=== PATIENT | female | born 1945 | race Caucasian/White ===

== ENCOUNTER 2017-08-07 08:18 | Inpatient (IN) | payer OTHER ==
[~2017-08-07] VITALS: Ht 157.5 cm; Wt 62.1 kg
[2017-08-07 10:31] LABS: Urine RBC None Seen /hpf (0 - 4)
[2017-08-07 10:32] LABS: Basophils # (auto) 0.1 uL; Basophils % (auto) 0.7 % (0.0-2.0); Eosinophils # (auto) 0 uL; Eosinophils % (auto) 0.5 % (0.0-7.0); Hematocrit 41.4 % (36.0-46.0); Hemoglobin 13.4 g/dL (12.2-16.2); Lymphocytes # (auto) 2.1 uL; Lymphocytes % (auto) 25.2 % (10.0-50.0); Mean Corpuscular Hemoglobin 28.9 pg (28.0-32.0); Mean Corpuscular Hgb Conc. 32.4 g/dL (32.0-36.0); Mean Platelet Volume 7.7 fL (6.9-10.8); Monocytes # (auto) 0.6 uL; Monocytes % (auto) 7.3 % (0.0-12.0); Neutrophils # (auto) 5.5 uL; Neutrophils % (auto) 66.3 % (37.0-80.0); Nucleated Red Blood Cells % 0.1 %; Platelet Count (auto) 312 10^3/uL (140-450); Red Cell Distribution Width 15.1 % (11.8-14.3); White Blood Cell 8.3 10^3/uL (4.4-10.8)
[2017-08-07 10:41] LABS: Albumin 3.6 g/dL (3.4-5.0); Bilirubin, Total 0.6 mg/dL (0.2-1.0); Potassium 3.8 mmol/L (3.5-5.1); Total Protein 7.5 g/dL (6.4-8.2)
[2017-08-07 11:13] LABS: Urine Bilirubin Negative (Negative); Urine Blood Negative /uL (Negative); Urine Glucose Normal (Normal); Urine Ketone Negative (Negative); Urine Nitrite Negative (Negative); Urine Squamous Epithelial Cell FEW /hpf (<5); Urine Urobilinogen Normal (Negative)
[2017-08-07 11:26] LABS: Urine Color Straw (Yellow)
[2017-08-07] MEDS ORDERED: ASPirin 325 MG TAB PO ONE (11:30)
[2017-08-07] MEDS ORDERED: CLOPIDOGREL BISULFATE 75 MG TAB PO ONE (11:30)
[2017-08-07] MEDS: SODIUM CHLORIDE 0.9% 1,000 ML IV SCH ×2 (12:09→16:32)
[2017-08-07] MEDS: ENOXAPARIN SOD 40 MG/0.4 ML SYRINGE SC SCH (12:11)
[2017-08-07] MEDS ORDERED: LACTULOSE 20Gm/30ML SOLN PO PRN (12:15)
[2017-08-07] MEDS ORDERED: ONDANSETRON HCL 4 MG/2 ML VIAL IV PRN (12:15)
[2017-08-07] MEDS ORDERED: TEMAZEPAM 15 MG CAP PO PRN (12:15)
[2017-08-07] MEDS ORDERED: HYDROmorphone HCL 2 MG/ML VL IV PRN ×2 (12:15)
[2017-08-07] MEDS ORDERED: PROMETHAZINE HCL 25 MG/ML 1ML IV PRN (12:15)
[2017-08-07] MEDS ORDERED: HYDROcodone-ACET 5/325MG TAB PO PRN (12:15)
[2017-08-07] MEDS ORDERED: NITROGLYCERIN 0.4 MG SL TAB SL PRN (12:15)
[2017-08-07 15:50] VITALS: BP 132/80
[2017-08-07] MEDS ORDERED: RED1CAP PO (16:49)
[2017-08-07] MEDS ORDERED: CHOL20007 PO (16:49)
[2017-08-07] MEDS ORDERED: VITALIQ10 PO (16:49)
[2017-08-07] MEDS ORDERED: CINN500C7 PO (16:49)
[2017-08-07] MEDS ORDERED: SERT25TA84 PO (16:51)
[2017-08-07] MEDS ORDERED: MELO15TA4 PO (16:51)
[2017-08-07 20:00] VITALS: BP 122/68
[2017-08-07] MEDS: ATORVASTATIN 20 MG TAB PO SCH (21:42)
[2017-08-07] MEDS: ACETAMINOPHEN 500 MG TAB PO PRN (21:43)
[2017-08-07 22:00] VITALS: BP 122/68
[2017-08-08] VITALS (7 sets, daily range): BP systolic 109–140; BP diastolic 63–87
[2017-08-08] MEDS: SODIUM CHLORIDE 0.9% 1,000 ML IV SCH ×3 (00:31→22:27)
[2017-08-08 06:55] LABS: Cholesterol 179 mg/dL (< 200); HDL Cholesterol 43 mg/dL (40-59); LDL Cholesterol 124 mg/dL (< 100); Triglycerides 123 mg/dL (< 150)
[2017-08-08] MEDS: ENOXAPARIN SOD 40 MG/0.4 ML SYRINGE SC SCH (09:55)
[2017-08-08] MEDS ORDERED: ASPirin 81 mg TAB PO SCH (10:00)
[2017-08-08] MEDS: ACETAMINOPHEN 500 MG TAB PO PRN ×2 (12:20→22:26)
[2017-08-08] MEDS: ZOLPIDEM TARTRATE 5 MG TAB PO PRN (22:26)
[2017-08-08] MEDS: ATORVASTATIN 20 MG TAB PO SCH (22:26)
[2017-08-09 05:24] VITALS: BP 147/89
[2017-08-09 09:03] VITALS: BP 129/76
[2017-08-09] MEDS: ENOXAPARIN SOD 40 MG/0.4 ML SYRINGE SC SCH (11:04)
[2017-08-09] MEDS: ACETAMINOPHEN 500 MG TAB PO PRN ×2 (11:22→20:26)
[2017-08-09 12:41] VITALS: BP 132/66
[2017-08-09] MEDS: SODIUM CHLORIDE 0.9% 1,000 ML IV SCH (14:01)
[2017-08-09 17:00] VITALS: BP 119/60
[2017-08-09 20:00] VITALS: BP 112/71
[2017-08-09] MEDS: LORazepam 0.5 MG TAB PO PRN (20:26)
[2017-08-09] MEDS: ZOLPIDEM TARTRATE 5 MG TAB PO PRN (22:00)
[2017-08-09] MEDS: ATORVASTATIN 20 MG TAB PO SCH (22:00)
[2017-08-10] VITALS (7 sets, daily range): BP systolic 107–141; BP diastolic 62–83
[2017-08-10] MEDS: SODIUM CHLORIDE 0.9% 1,000 ML IV SCH ×2 (02:31→15:01)
[2017-08-10] MEDS: ENOXAPARIN SOD 40 MG/0.4 ML SYRINGE SC SCH (10:00)
[2017-08-10] MEDS: ACETAMINOPHEN 500 MG TAB PO PRN (14:05)
[2017-08-10] MEDS: CLOPIDOGREL BISULFATE 75 MG TAB PO SCH (17:13)
[2017-08-10] MEDS: LORazepam 0.5 MG TAB PO PRN (21:24)
[2017-08-10] MEDS ORDERED: ZOLPIDEM TARTRATE 5 MG TAB PO PRN (21:30)
[2017-08-10] MEDS ORDERED: ATORVASTATIN 20 MG TAB PO SCH (22:00)
[2017-08-11] MEDS: SODIUM CHLORIDE 0.9% 1,000 ML IV SCH ×2 (03:31→14:00)
[2017-08-11 05:14] VITALS: BP 134/81
[2017-08-11 08:57] VITALS: BP 125/78
[2017-08-11] MEDS ORDERED: SERTRALINE HCL 50 MG TAB PO SCH (10:00)
[2017-08-11] MEDS: CLOPIDOGREL BISULFATE 75 MG TAB PO SCH (10:39)
[2017-08-11] MEDS: ENOXAPARIN SOD 40 MG/0.4 ML SYRINGE SC SCH (10:40)
[2017-08-11 10:41] LABS: Temperature: 22.4 C (20.0-25.0)
[2017-08-11] MEDS: ACETAMINOPHEN 500 MG TAB PO PRN (10:41)
[2017-08-11 13:00] VITALS: BP 128/70
== END 2017-08-11 16:10 | DRG 65 ==
LOC: EDUNIT# 08:18 → ER 08:18 → EDBD 08:18 → TELE 08:19 → TELE-CENTR 16:12
PROVIDERS: ADMIT Internal Medicine; ATTEND Internal Medicine
DX: I63.9 Cerebral infarction, unspecified (principal); G81.91 Hemiplegia, unspecified affecting right dominant side; G82.20 Paraplegia, unspecified; F41.0 Panic disorder [episodic paroxysmal anxiety]; F51.04 Psychophysiologic insomnia; F17.210 Nicotine dependence, cigarettes, uncomplicated; F32.9 Major depressive disorder, single episode, unspecified; Z79.82 Long term (current) use of aspirin; Z79.899 Other long term (current) drug therapy; Z86.73 Personal history of transient ischemic attack (TIA), and cerebral infarction without residual deficits; Z88.6 Allergy status to analgesic agent; Z88.1 Allergy status to other antibiotic agents; Z88.0 Allergy status to penicillin; Z88.8 Allergy status to other drugs, medicaments and biological substances; K59.00 Constipation, unspecified; G89.29 Other chronic pain; M25.561 Pain in right knee; M25.571 Pain in right ankle and joints of right foot
CPT/HCPCS: 36415; 70450; 70551; 73560; 73610; 80053; 80061; 81001; 82550; 82607; 82746; 84443; 85025; 85652; 93005; 93306; 93886; 96372; 97110; 97116; 97530

== ENCOUNTER 2021-08-28 13:30 | Inpatient (IN) | payer OTHER ==
[~2021-08-28] VITALS: Ht 157.5 cm; Wt 83.1 kg
[~2021-08-28 13:30] MED LIST: CHOL20007 PO; CINN500C7 PO; MELO1TAB56 PO; RED1CAP PO; SERT25TA84 PO; VITALIQ10 PO
[2021-08-28 14:28] LABS: Basophils # (auto) 0.1 10 ^3/uL (0-0.2); Basophils % (auto) 0.8 % (0.0-2.0); Eosinophils # (auto) 0.1 10 ^3/uL (0-0.8); Hematocrit 30.3 % (36.0-46.0); Hemoglobin 9.9 g/dL (12.2-16.2); Lymphocytes # (auto) 2.5 10 ^3/uL (0.4-5.4); Lymphocytes % (auto) 32.2 % (10.0-50.0); Mean Corpuscular Hemoglobin 29.1 pg (28.0-32.0); Mean Corpuscular Hgb Conc. 32.6 g/dL (32.0-36.0); Monocytes # (auto) 0.8 10 ^3/uL (0-1.3); Monocytes % (auto) 10.1 % (0.0-12.0); Neutrophils # (auto) 4.4 10 ^3/uL (1.6-8.6); Neutrophils % (auto) 55.9 % (37.0-80.0); Nucleated Red Blood Cells % 0.1 %; Red Cell Distribution Width 14.1 % (11.8-14.3); White Blood Cell 7.9 10^3/uL (4.4-10.8)
[2021-08-28 14:52] LABS: INR 0.99 (0.9-1.15); Partial Thromboplastin Time 24.8 sec (23.6-33.0)
[2021-08-28 14:54] LABS: Albumin 2.3 g/dL (3.4-5.0); Potassium 3.8 mmol/L (3.5-5.1)
[2021-08-28 14:58] LABS: Bilirubin, Total 1.1 mg/dL (0.2-1.0); Total Protein 5.8 g/dL (6.4-8.2)
[2021-08-28 15:56] LABS: Urine Bacteria NONE SEEN /hpf (None Seen); Urine Blood Negative /uL (Negative); Urine Specific Gravity 1.008 (1.001-1.035); Urine WBC 2 /hpf (0 - 5)
[2021-08-28] MEDS ORDERED: ACETAMINOPHEN 325 MG TAB PO PRN (17:15)
[2021-08-28] MEDS ORDERED: ONDANSETRON HCL 4 MG/2 ML VIAL IV PRN (17:15)
[2021-08-28] MEDS ORDERED: MORPHINE SULFATE 4 MG/ML SYR/VIAL IV ONE (17:30)
[2021-08-28] MEDS ORDERED: ONDANSETRON HCL 4 MG/2 ML VIAL IV ONE (18:00)
[2021-08-28 21:50] VITALS: BP 120/58
[2021-08-28 22:00] VITALS: BP 120/58
[2021-08-28] MEDS: MORPHINE SULFATE INJECTION 2 MG/ML SYRG IV PRN (22:50)
[2021-08-29] MEDS: HYDROcodone-ACET 5/325MG TAB PO PRN ×3 (00:35→18:33)
[2021-08-29] MEDS: MORPHINE SULFATE INJECTION 2 MG/ML SYRG IV PRN ×2 (04:23→20:50)
[2021-08-29] MEDS ORDERED: CYA100I PO (04:44)
[2021-08-29] MEDS ORDERED: ASCO100076 PO (04:44)
[2021-08-29 05:00] VITALS: BP 104/59
[2021-08-29 07:30] LABS: Basophils # (auto) 0.1 10 ^3/uL (0-0.2); Eosinophils # (auto) 0.1 10 ^3/uL (0-0.8); Eosinophils % (auto) 1.5 % (0.0-7.0); Hematocrit 27.3 % (36.0-46.0); Hemoglobin 9.1 g/dL (12.2-16.2); Lymphocytes # (auto) 2.7 10 ^3/uL (0.4-5.4); Lymphocytes % (auto) 41.2 % (10.0-50.0); Mean Corpuscular Hemoglobin 29.7 pg (28.0-32.0); Mean Corpuscular Hgb Conc. 33.3 g/dL (32.0-36.0); Mean Corpuscular Volume 89.1 fL (80.0-100.0); Monocytes # (auto) 0.7 10 ^3/uL (0-1.3); Monocytes % (auto) 10.5 % (0.0-12.0); Neutrophils % (auto) 45.8 % (37.0-80.0); Nucleated Red Blood Cells % 0.1 %; Red Blood Cells 3.07 10^6/uL (4.0-5.20); Red Cell Distribution Width 14.1 % (11.8-14.3); White Blood Cell 6.6 10^3/uL (4.4-10.8)
[2021-08-29 07:42] LABS: Calcium 7.7 mg/dL (8.5-10.1); Potassium 4.1 mmol/L (3.5-5.1)
[2021-08-29 09:00] VITALS: BP 99/56
[2021-08-29] MEDS: SERTRALINE HCL 50 MG TAB PO SCH (10:00)
[2021-08-29] MEDS ORDERED: LIDOCAINE 2%HCL (LOCAL ANESTH.) INJ 20ML MDV ONE (12:36)
[2021-08-29 13:00] VITALS: BP 119/68
[2021-08-29] MEDS ORDERED: MIDAZOLAM HCL 2MG/2ML 2ml VIAL (1mg/ml) ONE (14:53)
[2021-08-29] MEDS ORDERED: fentaNYL CITRATE 100 MCG/2 ML VL ONE (14:53)
[2021-08-29 16:58] VITALS: BP 98/63
[2021-08-29 22:00] VITALS: BP 106/49
[2021-08-30 05:00] VITALS: BP 117/60
[2021-08-30 07:52] LABS: Basophils # (auto) 0.1 10 ^3/uL (0-0.2); Basophils % (auto) 0.8 % (0.0-2.0); Eosinophils # (auto) 0.1 10 ^3/uL (0-0.8); Eosinophils % (auto) 1.2 % (0.0-7.0); Hematocrit 28.6 % (36.0-46.0); Hemoglobin 9.3 g/dL (12.2-16.2); Lymphocytes # (auto) 2.2 10 ^3/uL (0.4-5.4); Lymphocytes % (auto) 29.7 % (10.0-50.0); Mean Corpuscular Hemoglobin 29.1 pg (28.0-32.0); Mean Corpuscular Hgb Conc. 32.5 g/dL (32.0-36.0); Mean Corpuscular Volume 89.4 fL (80.0-100.0); Monocytes # (auto) 0.7 10 ^3/uL (0-1.3); Monocytes % (auto) 9.8 % (0.0-12.0); Neutrophils # (auto) 4.3 10 ^3/uL (1.6-8.6); Neutrophils % (auto) 58.5 % (37.0-80.0); Nucleated Red Blood Cells % 0.1 %; Red Cell Distribution Width 14.2 % (11.8-14.3); White Blood Cell 7.3 10^3/uL (4.4-10.8)
[2021-08-30 08:09] LABS: Anion Gap 11 (5-15); BUN/Creatinine Ratio 26.9; Blood Urea Nitrogen 14 mg/dL (7-18); Calcium 8.1 mg/dL (8.5-10.1); Carbon Dioxide 24 mmol/L (21-32); Chloride 107 mmol/L (98-107); GFR African American 148 mL/min; GFR Non-African American 122 mL/min; Glucose 91 mg/dL (74-106); Potassium 4.9 mmol/L (3.5-5.1); Sodium 142 mmol/L (136-145)
[2021-08-30] MEDS: HYDROcodone-ACET 5/325MG TAB PO PRN (08:48)
[2021-08-30] MEDS: SERTRALINE HCL 50 MG TAB PO SCH (08:48)
[2021-08-30 09:00] VITALS: BP 118/54
[2021-08-30] MEDS: MORPHINE SULFATE INJECTION 2 MG/ML SYRG IV PRN ×2 (11:19→22:20)
[2021-08-30 13:00] VITALS: BP 112/58
[2021-08-30 17:00] VITALS: BP 112/65
[2021-08-30] MEDS: POLYETHYLENE GLYCOL 17 GM PWDR PO SCH (20:17)
[2021-08-30] MEDS: DOCUSATE SOD 100 MG CAP PO SCH (20:17)
[2021-08-30 22:00] VITALS: BP 134/71
[2021-08-31 05:04] VITALS: BP 117/68
[2021-08-31] MEDS: DOCUSATE SOD 100 MG CAP PO SCH ×3 (06:00→21:57)
[2021-08-31] MEDS ORDERED: BUPIVACAINE 0.25% INJ 50ML VIAL ONE (07:01)
[2021-08-31 07:04] LABS: Basophils # (auto) 0.1 10 ^3/uL (0-0.2); Basophils % (auto) 0.8 % (0.0-2.0); Eosinophils # (auto) 0.1 10 ^3/uL (0-0.8); Eosinophils % (auto) 1.1 % (0.0-7.0); Hematocrit 27.9 % (36.0-46.0); Hemoglobin 9.4 g/dL (12.2-16.2); Lymphocytes # (auto) 2.1 10 ^3/uL (0.4-5.4); Lymphocytes % (auto) 27.5 % (10.0-50.0); Mean Corpuscular Hemoglobin 29.8 pg (28.0-32.0); Mean Corpuscular Hgb Conc. 33.6 g/dL (32.0-36.0); Mean Corpuscular Volume 88.7 fL (80.0-100.0); Monocytes # (auto) 0.7 10 ^3/uL (0-1.3); Monocytes % (auto) 9.5 % (0.0-12.0); Neutrophils # (auto) 4.7 10 ^3/uL (1.6-8.6); Neutrophils % (auto) 61.1 % (37.0-80.0); Nucleated Red Blood Cells % 0.1 %; Red Blood Cells 3.15 10^6/uL (4.0-5.20); White Blood Cell 7.7 10^3/uL (4.4-10.8)
[2021-08-31 07:10] LABS: BUN/Creatinine Ratio 25.5; Calcium 7.9 mg/dL (8.5-10.1); Potassium 4.4 mmol/L (3.5-5.1)
[2021-08-31] MEDS ORDERED: VANCOMYCIN HCL 1000 MG VL ONE (07:16)
[2021-08-31] MEDS ORDERED: PROPOFOL 10 MG/ML 20 ML IV ONE (08:06)
[2021-08-31] MEDS ORDERED: LIDOCAINE 2% (LOCAL ANESTH.) PF 5ml SDV ONE (08:06)
[2021-08-31] MEDS ORDERED: ONDANSETRON HCL 4 MG/2 ML VIAL ONE (08:07)
[2021-08-31] MEDS ORDERED: DexAMETHasone SOD PHOS 10MG/1ML VIAL INJ ONE (08:07)
[2021-08-31] MEDS ORDERED: ePHEDrine SULFATE 50 MG/ML AMP ONE (08:07)
[2021-08-31] MEDS ORDERED: fentaNYL CITRATE 100 MCG/2 ML VL ONE ×2 (08:09→09:19)
[2021-08-31] MEDS ORDERED: HYDROmorphone HCL 2 MG/ML VL IV PRN ×2 (09:45)
[2021-08-31] MEDS ORDERED: hydrALAZINE HCL 20 MG/ML VL IV PRN (09:45)
[2021-08-31] MEDS ORDERED: LABETALOL HCL 5 MG/ML 4ML SYRINGE IV PRN (09:45)
[2021-08-31] MEDS: SERTRALINE HCL 50 MG TAB PO SCH (11:44)
[2021-08-31] MEDS: HYDROcodone-ACET 10/325MG TAB PO PRN (11:45)
[2021-08-31] MEDS: POLYETHYLENE GLYCOL 17 GM PWDR PO SCH (11:46)
[2021-08-31 13:00] VITALS: BP 121/67
[2021-08-31] MEDS: HYDROmorphone HCL 2 MG/ML VL IV PRN ×2 (13:07→22:03)
[2021-08-31] MEDS: VANCOMYCIN 1GM/250ML 250 ML IV SCH (16:00)
[2021-08-31 17:00] VITALS: BP 116/72
[2021-08-31 21:52] VITALS: BP 129/69
[2021-09-01] MEDS: VANCOMYCIN 1GM/250ML 250 ML IV SCH (03:57)
[2021-09-01] MEDS: HYDROcodone-ACET 10/325MG TAB PO PRN (04:22)
[2021-09-01] MEDS: DOCUSATE SOD 100 MG CAP PO SCH ×3 (05:12→21:31)
[2021-09-01 05:22] VITALS: BP 113/53
[2021-09-01 07:00] LABS: Basophils # (auto) 0 10 ^3/uL (0-0.2); Eosinophils # (auto) 0 10 ^3/uL (0-0.8); Eosinophils % (auto) 0.1 % (0.0-7.0); Monocytes % (auto) 11.9 % (0.0-12.0); White Blood Cell 8.8 10^3/uL (4.4-10.8)
[2021-09-01 07:04] LABS: Basophils % (auto) 0.3 % (0.0-2.0); Hematocrit 24.2 % (36.0-46.0); Lymphocytes # (auto) 1.6 10 ^3/uL (0.4-5.4); Lymphocytes % (auto) 18.5 % (10.0-50.0); Mean Corpuscular Hemoglobin 29.1 pg (28.0-32.0); Mean Corpuscular Volume 88.1 fL (80.0-100.0); Monocytes # (auto) 1.1 10 ^3/uL (0-1.3); Neutrophils # (auto) 6.1 10 ^3/uL (1.6-8.6); Neutrophils % (auto) 69.2 % (37.0-80.0); Red Blood Cells 2.75 10^6/uL (4.0-5.20); Red Cell Distribution Width 13.6 % (11.8-14.3)
[2021-09-01 07:08] LABS: BUN/Creatinine Ratio 31.3; Calcium 7.6 mg/dL (8.5-10.1); Potassium 4.8 mmol/L (3.5-5.1)
[2021-09-01] MEDS: ENOXAPARIN SOD 80 MG/0.8ML SYRINGE SC SCH (08:32)
[2021-09-01] MEDS: POLYETHYLENE GLYCOL 17 GM PWDR PO SCH (08:34)
[2021-09-01] MEDS: SERTRALINE HCL 50 MG TAB PO SCH (08:34)
[2021-09-01] MEDS: HYDROmorphone HCL 2 MG/ML VL IV PRN ×2 (08:35→21:43)
[2021-09-01 09:00] VITALS: BP 108/51
[2021-09-01 12:00] VITALS: BP 117/67
[2021-09-01 16:00] VITALS: BP 141/71
[2021-09-01] MEDS ORDERED: LACTULOSE 20Gm/30ML SOLN PO ONE (16:45)
[2021-09-01 17:00] VITALS: BP 109/32
[2021-09-01] MEDS: LACTULOSE 20Gm/30ML SOLN PO SCH (21:44)
[2021-09-01 22:00] VITALS: BP 156/80
[2021-09-02 05:00] VITALS: BP 174/78
[2021-09-02 05:35] LABS: Basophils % (auto) 0.5 % (0.0-2.0); Eosinophils # (auto) 0 10 ^3/uL (0-0.8)
[2021-09-02 05:42] LABS: Basophils # (auto) 0.1 10 ^3/uL (0-0.2); Eosinophils % (auto) 0.4 % (0.0-7.0); Hematocrit 24.7 % (36.0-46.0); Hemoglobin 8.4 g/dL (12.2-16.2); Lymphocytes # (auto) 2.1 10 ^3/uL (0.4-5.4); Mean Corpuscular Hemoglobin 29.8 pg (28.0-32.0); Mean Corpuscular Hgb Conc. 33.9 g/dL (32.0-36.0); Monocytes % (auto) 10.7 % (0.0-12.0); Neutrophils # (auto) 6.4 10 ^3/uL (1.6-8.6); Neutrophils % (auto) 66.4 % (37.0-80.0); Red Blood Cells 2.81 10^6/uL (4.0-5.20); Red Cell Distribution Width 14.1 % (11.8-14.3); White Blood Cell 9.7 10^3/uL (4.4-10.8)
[2021-09-02 05:57] LABS: Calcium 7.8 mg/dL (8.5-10.1); Potassium 4.7 mmol/L (3.5-5.1)
[2021-09-02 06:00] LABS: BUN/Creatinine Ratio 25.5
[2021-09-02] MEDS: LACTULOSE 20Gm/30ML SOLN PO SCH (06:00)
[2021-09-02] MEDS: DOCUSATE SOD 100 MG CAP PO SCH ×2 (06:10→14:00)
[2021-09-02] MEDS: HYDROmorphone HCL 2 MG/ML VL IV PRN ×3 (06:14→15:18)
[2021-09-02 09:00] VITALS: BP 119/62
[2021-09-02] MEDS: POLYETHYLENE GLYCOL 17 GM PWDR PO SCH (10:00)
[2021-09-02] MEDS: ENOXAPARIN SOD 80 MG/0.8ML SYRINGE SC SCH (10:31)
[2021-09-02] MEDS: SERTRALINE HCL 50 MG TAB PO SCH (10:32)
[2021-09-02 13:00] VITALS: BP 105/58
[2021-09-02 16:46] VITALS: BP 156/76
== END 2021-09-02 20:38 | DRG 480 ==
LOC: ER 13:30 → EDBD 13:30 → OVERFLOW 17:05 → WEST WING 21:24
PROVIDERS: ADMIT Internal Medicine; ATTEND Internal Medicine
PROC: BW1C1ZZ Fluoroscopy of Lower Extremity using Low Osmolar Contrast (ICD-10-PCS; 2021-08-31)
PROC: 06H03DZ Insertion of Intraluminal Device into Inferior Vena Cava, Percutaneous Approach (ICD-10-PCS; 2021-08-31)
PROC: B519YZZ Fluoroscopy of Inferior Vena Cava using Other Contrast (ICD-10-PCS; 2021-08-31)
PROC: 0QS604Z Reposition Right Upper Femur with Internal Fixation Device, Open Approach (ICD-10-PCS; principal; 2021-08-31 08:08)
DX: S72.8X1A Other fracture of right femur, initial encounter for closed fracture (principal); E43 Unspecified severe protein-calorie malnutrition; I82.441 Acute embolism and thrombosis of right tibial vein; D64.9 Anemia, unspecified; Z95.828 Presence of other vascular implants and grafts; Z96.651 Presence of right artificial knee joint; Z20.822 Contact with and (suspected) exposure to COVID-19; W18.39XA Other fall on same level, initial encounter; F17.210 Nicotine dependence, cigarettes, uncomplicated; Z88.0 Allergy status to penicillin; Z88.8 Allergy status to other drugs, medicaments and biological substances; Z82.49 Family history of ischemic heart disease and other diseases of the circulatory system; Z86.73 Personal history of transient ischemic attack (TIA), and cerebral infarction without residual deficits; Z90.710 Acquired absence of both cervix and uterus; Y93.89 Activity, other specified; Y92.098 Other place in other non-institutional residence as the place of occurrence of the external cause; Y99.8 Other external cause status
CPT/HCPCS: 36415; 71045; 72170; 73560; 73700; 76000; 80048; 80053; 81001; 85025; 85610; 85730; 86850; 86900; 86901; 87426; 93005; 93306; 93970; 96375; 96376; 97110; 97116; 97163; 97530; 99152; G0378; J1100; J2001; J2250; J2405; J2704; J3490

== ENCOUNTER 2021-09-27 22:24 | Inpatient (IN) | payer OTHER ==
[~2021-09-27] VITALS: Ht 157.5 cm; Wt 64.5 kg
[~2021-09-27 22:24] MED LIST changes: +ASCO100076 PO; -CINN500C7 PO; +CYA100I PO; -MELO1TAB56 PO; -RED1CAP PO; -SERT25TA84 PO; -VITALIQ10 PO
[2021-09-27 23:58] LABS: Basophils # (auto) 0.1 10 ^3/uL (0-0.2); Hematocrit 33.8 % (36.0-46.0); Hemoglobin 10.1 g/dL (12.2-16.2); Mean Corpuscular Hemoglobin 25.9 pg (28.0-32.0)
[2021-09-28] LABS: Basophils % (auto) 0.3 % (0.0-2.0); Eosinophils # (auto) 0 10 ^3/uL (0-0.8); Lymphocytes % (auto) 11.1 % (10.0-50.0); Mean Corpuscular Hgb Conc. 29.9 g/dL (32.0-36.0); Mean Corpuscular Volume 86.8 fL (80.0-100.0); Monocytes # (auto) 1.4 10 ^3/uL (0-1.3); Monocytes % (auto) 7.6 % (0.0-12.0); Neutrophils # (auto) 14.7 10 ^3/uL (1.6-8.6); Red Blood Cells 3.89 10^6/uL (4.0-5.20); Red Cell Distribution Width 16.8 % (11.8-14.3); White Blood Cell 18.2 10^3/uL (4.4-10.8)
[2021-09-28 00:44] LABS: Albumin 1.7 g/dL (3.4-5.0); BUN/Creatinine Ratio 34.8; Calcium 8.6 mg/dL (8.5-10.1); Potassium 3.6 mmol/L (3.5-5.1)
[2021-09-28 00:49] LABS: Bilirubin, Total 0.4 mg/dL (0.2-1.0); Total Protein 7.3 g/dL (6.4-8.2)
[2021-09-28 00:55] LABS: Urine Bacteria NONE SEEN /hpf (None Seen); Urine Blood 1+ /uL (Negative); Urine Specific Gravity 1.014 (1.001-1.035); Urine WBC 3 /hpf (0 - 5)
[2021-09-28] MEDS ORDERED: DexAMETHasone SOD PHOS 10MG/1ML VIAL INJ IV ONE (05:00)
[2021-09-28] MEDS ORDERED: SODIUM CHLORIDE 0.9% 500 ML IV ONE (05:15)
[2021-09-28] MEDS ORDERED: SOD CHL 0.45% 1,000 ML IV SCH (05:45)
[2021-09-28] MEDS ORDERED: ONDANSETRON HCL 4 MG/2 ML VIAL IV PRN ×2 (05:45→07:00)
[2021-09-28] MEDS ORDERED: NITROGLYCERIN 0.4 MG SL TAB SL PRN (07:00)
[2021-09-28] MEDS ORDERED: MORPHINE SULFATE INJECTION 2 MG/ML SYRG IV PRN (07:00)
[2021-09-28 07:16] LABS: Magnesium 2.6 mg/dL (1.6-2.6)
[2021-09-28 07:25] LABS: CRP High Sensitivity > 19.0 mg/dL (< 0.3)
[2021-09-28 07:42] LABS: INR > 8.0 (0.9-1.15); Partial Thromboplastin Time 104.2 sec (23.6-33.0)
[2021-09-28] MEDS: IVERMECTIN 3 MG TAB PO SCH ×2 (08:30→11:28)
[2021-09-28] MEDS: BUDESONIDE (INHALATION) 180 MCG IH IN SCH ×2 (10:00→20:39)
[2021-09-28] MEDS ORDERED: ENOXAPARIN SOD 30 MG/0.3 ML SYRINGE SC SCH (10:00)
[2021-09-28] MEDS ORDERED: D5W/SOD CHL 0.45% 1,000 ML IV SCH (10:30)
[2021-09-28] MEDS ORDERED: PHYTONADIONE (VIT K)10 MG/ML 1ML VIAL SUBCUT ONE (10:30)
[2021-09-28 11:12] LABS: BUN/Creatinine Ratio 43.3; Calcium 8.1 mg/dL (8.5-10.1); Potassium 3.6 mmol/L (3.5-5.1)
[2021-09-28] MEDS: cefTRIAXone 1GM/50ML D5W 50 ML IV SCH (11:26)
[2021-09-28] MEDS: DexAMETHasone SOD PHOS 10MG/1ML VIAL INJ IV SCH (11:27)
[2021-09-28] MEDS: PANTOPRAZOLE 40 MG TAB PO SCH (11:27)
[2021-09-28] MEDS: SERTRALINE HCL 50 MG TAB PO SCH (11:27)
[2021-09-28] MEDS: ZINC SULFATE 220mg CAP or TAB PO SCH (11:27)
[2021-09-28] MEDS: CHOLECALCIFEROL (VITD3) 2,000 UNIT CAP/TAB PO SCH (11:28)
[2021-09-28] MEDS: ASCORBIC ACID 1,000 MG TAB PO SCH (11:28)
[2021-09-28] MEDS: AZITHROMYCIN 500MG/ 250ML 250 ML IV SCH (11:36)
[2021-09-28] MEDS: D5W 5% 1,000 ML IV SCH ×2 (14:30→19:57)
[2021-09-28 17:11] VITALS: BP 128/68
[2021-09-28 22:00] VITALS: BP 125/68
[2021-09-29] VITALS (7 sets, daily range): BP systolic 126–146; BP diastolic 70–91
[2021-09-29] MEDS: cefTRIAXone 1GM/50ML D5W 50 ML IV SCH (08:45)
[2021-09-29] MEDS: CHOLECALCIFEROL (VITD3) 2,000 UNIT CAP/TAB PO SCH (08:46)
[2021-09-29] MEDS: DexAMETHasone SOD PHOS 10MG/1ML VIAL INJ IV SCH (08:46)
[2021-09-29] MEDS: PANTOPRAZOLE 40 MG TAB PO SCH (08:46)
[2021-09-29] MEDS: SERTRALINE HCL 50 MG TAB PO SCH (08:47)
[2021-09-29] MEDS: IVERMECTIN 3 MG TAB PO SCH (08:47)
[2021-09-29] MEDS: ZINC SULFATE 220mg CAP or TAB PO SCH (08:47)
[2021-09-29] MEDS: ASCORBIC ACID 1,000 MG TAB PO SCH (08:47)
[2021-09-29 09:00] LABS: Basophils # (auto) 0 10 ^3/uL (0-0.2); Basophils % (auto) 0.2 % (0.0-2.0); Eosinophils # (auto) 0 10 ^3/uL (0-0.8); Lymphocytes # (auto) 1.6 10 ^3/uL (0.4-5.4); Neutrophils % (auto) 84.3 % (37.0-80.0)
[2021-09-29 09:02] LABS: Hematocrit 26.3 % (36.0-46.0); Hemoglobin 7.9 g/dL (12.2-16.2); Lymphocytes % (auto) 9.7 % (10.0-50.0); Mean Corpuscular Hemoglobin 26.4 pg (28.0-32.0); Mean Corpuscular Hgb Conc. 30.1 g/dL (32.0-36.0); Mean Corpuscular Volume 87.6 fL (80.0-100.0); Monocytes % (auto) 5.8 % (0.0-12.0); Neutrophils # (auto) 13.9 10 ^3/uL (1.6-8.6); Red Cell Distribution Width 16.9 % (11.8-14.3); White Blood Cell 16.5 10^3/uL (4.4-10.8)
[2021-09-29 09:23] LABS: Albumin 1.6 g/dL (3.4-5.0); Potassium 3.1 mmol/L (3.5-5.1)
[2021-09-29 09:27] LABS: BUN/Creatinine Ratio 47.6; Bilirubin, Total 0.3 mg/dL (0.2-1.0); Total Protein 5.8 g/dL (6.4-8.2)
[2021-09-29] MEDS: BUDESONIDE (INHALATION) 180 MCG IH IN SCH ×2 (09:32→22:27)
[2021-09-29 10:04] LABS: INR > 8.0 (0.9-1.15)
[2021-09-29] MEDS ORDERED: PHYTONADIONE(VitK) ORAL Susp 10mg/10ml(1mg/ml) PO ONE (10:30)
[2021-09-29] MEDS ORDERED: REMDESIVIR PER PHARMACY 0 ML IV SCH (10:30)
[2021-09-29] MEDS ORDERED: POTASSIUM EFFERVESENT TAB 25 MEQ PO ONE (10:45)
[2021-09-29] MEDS: AZITHROMYCIN 500MG/ 250ML 250 ML IV SCH (11:46)
[2021-09-29] MEDS: D5W 5% 1,000 ML IV SCH ×3 (11:47→23:58)
[2021-09-29] MEDS ORDERED: REMDESIVIR 200 MG in NS 210ml LOADING DOSE ADULT IV ONE (15:00)
[2021-09-29 16:44] LABS: INR 7.81 (0.9-1.15)
[2021-09-29] MEDS: PANTOPRAZOLE 40mg/50ML NS AE 50 ML IV SCH ×2 (18:45→22:57)
[2021-09-29 20:18] LABS: Eosinophils # (auto) 0 10 ^3/uL (0-0.8); Hemoglobin 7.9 g/dL (12.2-16.2); Monocytes # (auto) 0.4 10 ^3/uL (0-1.3)
[2021-09-29 20:20] LABS: Basophils # (auto) 0.1 10 ^3/uL (0-0.2); Basophils % (auto) 0.5 % (0.0-2.0); Hematocrit 26.1 % (36.0-46.0); Lymphocytes # (auto) 1.1 10 ^3/uL (0.4-5.4); Lymphocytes % (auto) 6.8 % (10.0-50.0); Mean Corpuscular Hemoglobin 26.5 pg (28.0-32.0); Mean Corpuscular Hgb Conc. 30.4 g/dL (32.0-36.0); Mean Corpuscular Volume 87.1 fL (80.0-100.0); Monocytes % (auto) 2.5 % (0.0-12.0); Neutrophils # (auto) 14.1 10 ^3/uL (1.6-8.6); Neutrophils % (auto) 90.2 % (37.0-80.0); Red Blood Cells 2.99 10^6/uL (4.0-5.20); Red Cell Distribution Width 16.8 % (11.8-14.3); White Blood Cell 15.6 10^3/uL (4.4-10.8)
[2021-09-29] MEDS ORDERED: PANTOPRAZOLE 40 MG/10 ML VIAL INJ IV SCH (22:00)
[2021-09-30] VITALS (21 sets, daily range): BP systolic 114–166; BP diastolic 60–90
[2021-09-30] MEDS: PANTOPRAZOLE 40mg/50ML NS AE 50 ML IV SCH ×4 (03:38→22:13)
[2021-09-30 06:33] LABS: Basophils # (auto) 0 10 ^3/uL (0-0.2); Eosinophils # (auto) 0 10 ^3/uL (0-0.8); Monocytes # (auto) 0.5 10 ^3/uL (0-1.3); Nucleated Red Blood Cells % 0.1 %; White Blood Cell 16.6 10^3/uL (4.4-10.8)
[2021-09-30 06:35] LABS: Basophils % (auto) 0.1 % (0.0-2.0); Lymphocytes # (auto) 1.2 10 ^3/uL (0.4-5.4); Mean Corpuscular Hemoglobin 26.1 pg (28.0-32.0); Mean Corpuscular Hgb Conc. 30.3 g/dL (32.0-36.0); Mean Corpuscular Volume 86.2 fL (80.0-100.0); Monocytes % (auto) 3.1 % (0.0-12.0); Neutrophils # (auto) 14.9 10 ^3/uL (1.6-8.6); Neutrophils % (auto) 89.8 % (37.0-80.0); Red Blood Cells 2.44 10^6/uL (4.0-5.20); Red Cell Distribution Width 16.5 % (11.8-14.3)
[2021-09-30 06:43] LABS: INR 1.81 (0.9-1.15)
[2021-09-30 06:48] LABS: Hemoglobin 6.4 g/dL (12.2-16.2)
[2021-09-30 07:07] LABS: Albumin 1.8 g/dL (3.4-5.0); BUN/Creatinine Ratio 36.3; Calcium 8.4 mg/dL (8.5-10.1); Potassium 3.7 mmol/L (3.5-5.1)
[2021-09-30 07:10] LABS: Bilirubin, Total 0.4 mg/dL (0.2-1.0); Total Protein 5.5 g/dL (6.4-8.2)
[2021-09-30] MEDS: cefTRIAXone 1GM/50ML D5W 50 ML IV SCH (09:26)
[2021-09-30] MEDS: BUDESONIDE (INHALATION) 180 MCG IH IN SCH ×2 (09:50→22:00)
[2021-09-30] MEDS: CHOLECALCIFEROL (VITD3) 2,000 UNIT CAP/TAB PO SCH (10:00)
[2021-09-30] MEDS: IVERMECTIN 3 MG TAB PO SCH (10:00)
[2021-09-30] MEDS: ASCORBIC ACID 1,000 MG TAB PO SCH (10:00)
[2021-09-30] MEDS: ZINC SULFATE 220mg CAP or TAB PO SCH (10:00)
[2021-09-30] MEDS: SERTRALINE HCL 50 MG TAB PO SCH (10:00)
[2021-09-30] MEDS: DexAMETHasone SOD PHOS 10MG/1ML VIAL INJ IV SCH (11:05)
[2021-09-30] MEDS: AZITHROMYCIN 500MG/ 250ML 250 ML IV SCH (11:09)
[2021-09-30] MEDS: D5W 5% 1,000 ML IV SCH ×3 (11:19→19:50)
[2021-09-30] MEDS ORDERED: PHYTONADIONE (VIT K)10 MG/ML 1ML VIAL IV ONE (13:30)
[2021-09-30] MEDS ORDERED: phytonadione 10 MG in SODIUM CHL 0.9% 50 ML IV ONE (13:30)
[2021-09-30] MEDS: REMDESIVIR 100mg 100 MG in SODIUM CHL 0.9% 230 ML IV SCH (15:41)
[2021-09-30 23:31] LABS: Hematocrit 31.8 % (36.0-46.0); Hemoglobin 10.3 g/dL (12.2-16.2)
[2021-10-01] MEDS: D5W 5% 1,000 ML IV SCH ×4 (02:30→22:30)
[2021-10-01 05:00] VITALS: BP 153/80
[2021-10-01] MEDS: PANTOPRAZOLE 40mg/50ML NS AE 50 ML IV SCH ×3 (05:08→09:58)
[2021-10-01] MEDS: BUDESONIDE (INHALATION) 180 MCG IH IN SCH ×2 (05:58→22:40)
[2021-10-01 07:01] LABS: Basophils # (auto) 0 10 ^3/uL (0-0.2); Basophils % (auto) 0.1 % (0.0-2.0); Eosinophils # (auto) 0 10 ^3/uL (0-0.8); Hematocrit 35.6 % (36.0-46.0); Lymphocytes # (auto) 1.5 10 ^3/uL (0.4-5.4); Mean Corpuscular Hemoglobin 27.3 pg (28.0-32.0); Mean Corpuscular Volume 88.1 fL (80.0-100.0); Monocytes # (auto) 0.7 10 ^3/uL (0-1.3); Monocytes % (auto) 4.7 % (0.0-12.0); Neutrophils # (auto) 12.9 10 ^3/uL (1.6-8.6); Neutrophils % (auto) 85.2 % (37.0-80.0); Nucleated Red Blood Cells % 0.3 %; Red Blood Cells 4.05 10^6/uL (4.0-5.20); Red Cell Distribution Width 15.8 % (11.8-14.3); White Blood Cell 15.1 10^3/uL (4.4-10.8)
[2021-10-01 07:15] LABS: INR 1.3 (0.9-1.15); Partial Thromboplastin Time 21.7 sec (23.6-33.0)
[2021-10-01 07:23] LABS: Potassium 3.7 mmol/L (3.5-5.1)
[2021-10-01 07:31] LABS: Albumin 1.8 g/dL (3.4-5.0); BUN/Creatinine Ratio 54.9; Bilirubin, Total 0.4 mg/dL (0.2-1.0); Calcium 7.9 mg/dL (8.5-10.1); Total Protein 5.6 g/dL (6.4-8.2)
[2021-10-01 09:00] VITALS: BP 155/70
[2021-10-01] MEDS: ZINC SULFATE 220mg CAP or TAB PO SCH (09:34)
[2021-10-01] MEDS: ASCORBIC ACID 1,000 MG TAB PO SCH (09:35)
[2021-10-01] MEDS: SERTRALINE HCL 50 MG TAB PO SCH (09:35)
[2021-10-01] MEDS: CHOLECALCIFEROL (VITD3) 2,000 UNIT CAP/TAB PO SCH (09:35)
[2021-10-01] MEDS: IVERMECTIN 3 MG TAB PO SCH (09:35)
[2021-10-01] MEDS: cefTRIAXone 1GM/50ML D5W 50 ML IV SCH (09:57)
[2021-10-01] MEDS: DexAMETHasone SOD PHOS 10MG/1ML VIAL INJ IV SCH (09:57)
[2021-10-01] MEDS: AZITHROMYCIN 500MG/ 250ML 250 ML IV SCH (10:00)
[2021-10-01 10:48] LABS: Protein, Urine 68.5 mg/dL (0.0-11.9)
[2021-10-01] MEDS ORDERED: LIDOCAINE VISCOUS 2% 15ML UD ONE (11:51)
[2021-10-01] MEDS ORDERED: PROPOFOL 10 MG/ML 20 ML IV ONE (12:18)
[2021-10-01] MEDS ORDERED: fentaNYL CITRATE 100 MCG/2 ML VL ONE (12:18)
[2021-10-01] MEDS ORDERED: DexAMETHasone SOD PHOS 10MG/1ML VIAL INJ ONE (12:18)
[2021-10-01] MEDS ORDERED: MIDAZOLAM HCL 2MG/2ML 2ml VIAL (1mg/ml) ONE (12:18)
[2021-10-01] MEDS ORDERED: BENZOCAINE (DENTAL) 20 % SPRAY 60ML MT ONE (12:21)
[2021-10-01] MEDS ORDERED: HYDROmorphone HCL 2 MG/ML VL IV PRN (12:45)
[2021-10-01] MEDS ORDERED: MIDAZOLAM HCL 2MG/2ML 2ml VIAL (1mg/ml) IV PRN (12:45)
[2021-10-01] MEDS ORDERED: hydrALAZINE HCL 20 MG/ML VL IV PRN (12:45)
[2021-10-01] MEDS ORDERED: LABETALOL HCL 5 MG/ML 4ML SYRINGE IV PRN (12:45)
[2021-10-01] MEDS ORDERED: ONDANSETRON HCL 4 MG/2 ML VIAL IV PRN (12:45)
[2021-10-01] MEDS ORDERED: MORPHINE SULFATE 4 MG/ML SYR/VIAL IV PRN (12:45)
[2021-10-01] MEDS ORDERED: ePHEDrine SULFATE 50 MG/ML AMP IV PRN (12:45)
[2021-10-01 13:00] VITALS: BP 142/80
[2021-10-01] MEDS: REMDESIVIR 100mg 100 MG in SODIUM CHL 0.9% 230 ML IV SCH (15:00)
[2021-10-01 17:00] VITALS: BP 137/79
[2021-10-01 22:00] VITALS: BP 158/100
[2021-10-01] MEDS: PANTOPRAZOLE 40 MG/10 ML VIAL INJ IV SCH (22:15)
[2021-10-02 05:00] VITALS: BP 133/75
[2021-10-02] MEDS: D5W 5% 1,000 ML IV SCH ×2 (05:10→15:45)
[2021-10-02 06:37] LABS: Basophils # (auto) 0 10 ^3/uL (0-0.2); Basophils % (auto) 0.3 % (0.0-2.0); Eosinophils # (auto) 0 10 ^3/uL (0-0.8); Hematocrit 36.4 % (36.0-46.0); Hemoglobin 11.6 g/dL (12.2-16.2); Lymphocytes # (auto) 1.3 10 ^3/uL (0.4-5.4); Lymphocytes % (auto) 10.6 % (10.0-50.0); Mean Corpuscular Hemoglobin 27.6 pg (28.0-32.0); Mean Corpuscular Hgb Conc. 31.8 g/dL (32.0-36.0); Mean Corpuscular Volume 86.5 fL (80.0-100.0); Monocytes # (auto) 0.6 10 ^3/uL (0-1.3); Monocytes % (auto) 4.7 % (0.0-12.0); Neutrophils # (auto) 10.7 10 ^3/uL (1.6-8.6); Neutrophils % (auto) 84.4 % (37.0-80.0); Nucleated Red Blood Cells % 0.1 %; Red Blood Cells 4.21 10^6/uL (4.0-5.20); Red Cell Distribution Width 15.6 % (11.8-14.3); White Blood Cell 12.6 10^3/uL (4.4-10.8)
[2021-10-02 06:47] LABS: Albumin 1.9 g/dL (3.4-5.0); Calcium 8.1 mg/dL (8.5-10.1); Potassium 3.3 mmol/L (3.5-5.1)
[2021-10-02 06:55] LABS: Bilirubin, Total 0.5 mg/dL (0.2-1.0); CRP High Sensitivity 7.17 mg/dL (< 0.3); Total Protein 5.8 g/dL (6.4-8.2)
[2021-10-02] MEDS: BUDESONIDE (INHALATION) 180 MCG IH IN SCH ×2 (08:00→19:59)
[2021-10-02 09:00] VITALS: BP 168/97
[2021-10-02] MEDS: PANTOPRAZOLE 40 MG/10 ML VIAL INJ IV SCH ×2 (10:55→22:57)
[2021-10-02] MEDS: cefTRIAXone 1GM/50ML D5W 50 ML IV SCH (10:55)
[2021-10-02] MEDS: DexAMETHasone SOD PHOS 10MG/1ML VIAL INJ IV SCH (10:55)
[2021-10-02] MEDS: ASCORBIC ACID 1,000 MG TAB PO SCH (10:57)
[2021-10-02] MEDS: CHOLECALCIFEROL (VITD3) 2,000 UNIT CAP/TAB PO SCH (10:57)
[2021-10-02] MEDS: ZINC SULFATE 220mg CAP or TAB PO SCH (10:57)
[2021-10-02] MEDS: SERTRALINE HCL 50 MG TAB PO SCH (10:58)
[2021-10-02 13:00] VITALS: BP 165/99
[2021-10-02] MEDS: REMDESIVIR 100mg 100 MG in SODIUM CHL 0.9% 230 ML IV SCH (15:45)
[2021-10-02 17:00] VITALS: BP 167/97
[2021-10-02] MEDS: AZITHROMYCIN 500MG/ 250ML 250 ML IV SCH (17:24)
[2021-10-02] MEDS: cloNIDine HCL 0.1 MG TAB PO PRN (17:42)
[2021-10-02] MEDS ORDERED: ENOXAPARIN SOD 80 MG/0.8ML SYRINGE SC ONE (21:59)
[2021-10-02 22:00] VITALS: BP 181/86
[2021-10-03] MEDS: D5W 5% 1,000 ML IV SCH (01:10)
[2021-10-03 05:00] VITALS: BP 178/88
[2021-10-03] MEDS: cloNIDine HCL 0.1 MG TAB PO PRN (06:22)
[2021-10-03 07:01] LABS: Basophils # (auto) 0 10 ^3/uL (0-0.2); Basophils % (auto) 0.1 % (0.0-2.0); Eosinophils # (auto) 0 10 ^3/uL (0-0.8); Eosinophils % (auto) 0.3 % (0.0-7.0); Hematocrit 33.5 % (36.0-46.0); Hemoglobin 10.9 g/dL (12.2-16.2); Lymphocytes # (auto) 1.6 10 ^3/uL (0.4-5.4); Lymphocytes % (auto) 12.4 % (10.0-50.0); Mean Corpuscular Hemoglobin 28.1 pg (28.0-32.0); Mean Corpuscular Hgb Conc. 32.4 g/dL (32.0-36.0); Mean Corpuscular Volume 86.6 fL (80.0-100.0); Monocytes # (auto) 0.6 10 ^3/uL (0-1.3); Monocytes % (auto) 4.7 % (0.0-12.0); Neutrophils # (auto) 10.7 10 ^3/uL (1.6-8.6); Neutrophils % (auto) 82.5 % (37.0-80.0); Red Blood Cells 3.87 10^6/uL (4.0-5.20); Red Cell Distribution Width 15.9 % (11.8-14.3)
[2021-10-03 07:19] LABS: Albumin 1.7 g/dL (3.4-5.0); Calcium 7.6 mg/dL (8.5-10.1); Magnesium 2.4 mg/dL (1.6-2.6)
[2021-10-03 07:22] LABS: BUN/Creatinine Ratio 41.1; Bilirubin, Total 0.5 mg/dL (0.2-1.0); Total Protein 5.2 g/dL (6.4-8.2)
[2021-10-03 07:27] LABS: Potassium 2.9 mmol/L (3.5-5.1)
[2021-10-03 09:00] VITALS: BP 159/89
[2021-10-03] MEDS ORDERED: POTASSIUM CHL 20 Meq TABLET PO ONE (10:00)
[2021-10-03] MEDS: cefTRIAXone 1GM/50ML D5W 50 ML IV SCH (11:37)
[2021-10-03] MEDS: DexAMETHasone SOD PHOS 10MG/1ML VIAL INJ IV SCH (11:38)
[2021-10-03] MEDS: POTASSIUM CHL 20MEQ/50ML 50 ML IV SCH ×2 (11:38→15:53)
[2021-10-03] MEDS: PANTOPRAZOLE 40 MG/10 ML VIAL INJ IV SCH (11:39)
[2021-10-03] MEDS: ZINC SULFATE 220mg CAP or TAB PO SCH (11:39)
[2021-10-03] MEDS: ENOXAPARIN SOD 80 MG/0.8ML SYRINGE SC SCH (11:40)
[2021-10-03] MEDS: CHOLECALCIFEROL (VITD3) 2,000 UNIT CAP/TAB PO SCH (11:40)
[2021-10-03] MEDS: ASCORBIC ACID 1,000 MG TAB PO SCH (11:40)
[2021-10-03] MEDS: amLODIPine BESYLATE 5 MG TAB PO SCH (11:43)
[2021-10-03] MEDS: SERTRALINE HCL 50 MG TAB PO SCH (11:43)
[2021-10-03] MEDS: POTASSIUM CHLORIDE 20 MEQ in D5W 5% 1,000 ML IV SCH (12:00)
[2021-10-03 13:00] VITALS: BP 161/91
[2021-10-03] MEDS: REMDESIVIR 100mg 100 MG in SODIUM CHL 0.9% 230 ML IV SCH (15:52)
[2021-10-03] MEDS ORDERED: OMNIPAQUE ORAL SOLN 500ml 12mg/ml PO ONE (16:37)
[2021-10-03 17:00] VITALS: BP 152/81
[2021-10-03] MEDS: BUDESONIDE (INHALATION) 180 MCG IH IN SCH (18:45)
[2021-10-03] MEDS ORDERED: IOHEXOL 300 MG/ML 100ML BOTTLE IJ ONE (19:36)
[2021-10-03 22:00] VITALS: BP 159/84
[2021-10-04] MEDS: PANTOPRAZOLE 40 MG/10 ML VIAL INJ IV SCH ×3 (00:29→20:58)
[2021-10-04] MEDS: ENOXAPARIN SOD 80 MG/0.8ML SYRINGE SC SCH ×3 (00:29→20:59)
[2021-10-04] MEDS: POTASSIUM CHLORIDE 20 MEQ in D5W 5% 1,000 ML IV SCH ×4 (00:29→14:56)
[2021-10-04 05:00] VITALS: BP 156/85
[2021-10-04] MEDS: BUDESONIDE (INHALATION) 180 MCG IH IN SCH ×2 (05:56→20:30)
[2021-10-04 08:15] VITALS: BP 155/89
[2021-10-04] MEDS: cefTRIAXone 1GM/50ML D5W 50 ML IV SCH (08:52)
[2021-10-04 09:00] VITALS: BP 153/79
[2021-10-04] MEDS: DexAMETHasone SOD PHOS 10MG/1ML VIAL INJ IV SCH (09:55)
[2021-10-04] MEDS: ASCORBIC ACID 1,000 MG TAB PO SCH (09:56)
[2021-10-04] MEDS: CHOLECALCIFEROL (VITD3) 2,000 UNIT CAP/TAB PO SCH (09:56)
[2021-10-04] MEDS: amLODIPine BESYLATE 5 MG TAB PO SCH (09:56)
[2021-10-04] MEDS: SERTRALINE HCL 50 MG TAB PO SCH (09:56)
[2021-10-04] MEDS: ZINC SULFATE 220mg CAP or TAB PO SCH (09:56)
[2021-10-04 10:20] LABS: Basophils # (auto) 0.1 10 ^3/uL (0-0.2); Basophils % (auto) 0.5 % (0.0-2.0); Eosinophils # (auto) 0.1 10 ^3/uL (0-0.8); Eosinophils % (auto) 0.5 % (0.0-7.0); Hematocrit 33.7 % (36.0-46.0); Hemoglobin 10.9 g/dL (12.2-16.2); Lymphocytes # (auto) 1.9 10 ^3/uL (0.4-5.4); Lymphocytes % (auto) 14.7 % (10.0-50.0); Mean Corpuscular Hemoglobin 27.9 pg (28.0-32.0); Mean Corpuscular Hgb Conc. 32.4 g/dL (32.0-36.0); Mean Corpuscular Volume 86.3 fL (80.0-100.0); Monocytes # (auto) 0.7 10 ^3/uL (0-1.3); Monocytes % (auto) 5.2 % (0.0-12.0); Neutrophils # (auto) 10.2 10 ^3/uL (1.6-8.6); Neutrophils % (auto) 79.1 % (37.0-80.0); Nucleated Red Blood Cells % 0.1 %; Red Blood Cells 3.91 10^6/uL (4.0-5.20); Red Cell Distribution Width 15.7 % (11.8-14.3)
[2021-10-04 11:30] LABS: BUN/Creatinine Ratio 36.4; Calcium 7.7 mg/dL (8.5-10.1); Magnesium 2.3 mg/dL (1.6-2.6); Potassium 3.7 mmol/L (3.5-5.1)
[2021-10-04 16:54] VITALS: BP 142/85
[2021-10-04 20:00] VITALS: BP 155/89
[2021-10-04] MEDS: ACETAMINOPHEN 500 MG TAB PO PRN (21:00)
[2021-10-04 22:00] VITALS: BP 140/77
[2021-10-04] MEDS ORDERED: APIXABAN 5 MG TAB PO SCH (22:00)
[2021-10-05] VITALS (7 sets, daily range): BP systolic 107–150; BP diastolic 65–80
[2021-10-05] MEDS: BUDESONIDE (INHALATION) 180 MCG IH IN SCH ×2 (05:44→19:57)
[2021-10-05] MEDS: POTASSIUM CHLORIDE 20 MEQ in D5W 5% 1,000 ML IV SCH ×3 (07:05→19:01)
[2021-10-05 07:32] LABS: Hematocrit 33.9 % (36.0-46.0); Hemoglobin 11.3 g/dL (12.2-16.2)
[2021-10-05 07:48] LABS: INR 1.19 (0.9-1.15); Partial Thromboplastin Time 33.5 sec (23.6-33.0)
[2021-10-05] MEDS: cefTRIAXone 1GM/50ML D5W 50 ML IV SCH (08:47)
[2021-10-05] MEDS: DexAMETHasone SOD PHOS 10MG/1ML VIAL INJ IV SCH (09:47)
[2021-10-05] MEDS: PANTOPRAZOLE 40 MG/10 ML VIAL INJ IV SCH ×2 (09:47→21:43)
[2021-10-05] MEDS: SERTRALINE HCL 50 MG TAB PO SCH (09:48)
[2021-10-05] MEDS: ZINC SULFATE 220mg CAP or TAB PO SCH (09:48)
[2021-10-05] MEDS: amLODIPine BESYLATE 5 MG TAB PO SCH (09:48)
[2021-10-05] MEDS: CHOLECALCIFEROL (VITD3) 2,000 UNIT CAP/TAB PO SCH (09:48)
[2021-10-05] MEDS: ASCORBIC ACID 1,000 MG TAB PO SCH (09:48)
[2021-10-05] MEDS: ENOXAPARIN SOD 80 MG/0.8ML SYRINGE SC SCH ×2 (09:48→21:43)
[2021-10-06] VITALS (7 sets, daily range): BP systolic 121–146; BP diastolic 62–83
[2021-10-06] MEDS: cefTRIAXone 1GM/50ML D5W 50 ML IV SCH (09:06)
[2021-10-06] MEDS: BUDESONIDE (INHALATION) 180 MCG IH IN SCH ×2 (09:32→19:01)
[2021-10-06] MEDS: POTASSIUM CHLORIDE 20 MEQ in D5W 5% 1,000 ML IV SCH (09:58)
[2021-10-06] MEDS: amLODIPine BESYLATE 5 MG TAB PO SCH (09:59)
[2021-10-06] MEDS: ZINC SULFATE 220mg CAP or TAB PO SCH (09:59)
[2021-10-06] MEDS: DexAMETHasone SOD PHOS 10MG/1ML VIAL INJ IV SCH (09:59)
[2021-10-06] MEDS: PANTOPRAZOLE 40 MG/10 ML VIAL INJ IV SCH ×2 (09:59→21:35)
[2021-10-06] MEDS: CHOLECALCIFEROL (VITD3) 2,000 UNIT CAP/TAB PO SCH (10:00)
[2021-10-06] MEDS: SERTRALINE HCL 50 MG TAB PO SCH (10:00)
[2021-10-06] MEDS: ENOXAPARIN SOD 80 MG/0.8ML SYRINGE SC SCH ×2 (10:00→21:36)
[2021-10-06] MEDS: ASCORBIC ACID 1,000 MG TAB PO SCH (10:00)
[2021-10-07 05:00] VITALS: BP 130/81
[2021-10-07 05:57] LABS: Basophils # (auto) 0 10 ^3/uL (0-0.2); Basophils % (auto) 0.2 % (0.0-2.0); Eosinophils # (auto) 0 10 ^3/uL (0-0.8); Eosinophils % (auto) 0.3 % (0.0-7.0); Hematocrit 33.6 % (36.0-46.0); Lymphocytes # (auto) 2.4 10 ^3/uL (0.4-5.4); Lymphocytes % (auto) 26.6 % (10.0-50.0); Mean Corpuscular Hgb Conc. 32.6 g/dL (32.0-36.0); Mean Corpuscular Volume 85.9 fL (80.0-100.0); Monocytes # (auto) 0.8 10 ^3/uL (0-1.3); Monocytes % (auto) 8.8 % (0.0-12.0); Neutrophils # (auto) 5.7 10 ^3/uL (1.6-8.6); Neutrophils % (auto) 64.1 % (37.0-80.0); Nucleated Red Blood Cells % 0.1 %; Red Blood Cells 3.91 10^6/uL (4.0-5.20); Red Cell Distribution Width 15.5 % (11.8-14.3)
[2021-10-07 06:19] LABS: Potassium 3.4 mmol/L (3.5-5.1)
[2021-10-07 06:24] LABS: INR 1.06 (0.9-1.15); Partial Thromboplastin Time 26.8 sec (23.6-33.0)
[2021-10-07] MEDS: BUDESONIDE (INHALATION) 180 MCG IH IN SCH ×2 (07:21→19:32)
[2021-10-07] MEDS: ENOXAPARIN SOD 80 MG/0.8ML SYRINGE SC SCH ×2 (08:40→21:49)
[2021-10-07 09:00] VITALS: BP 132/71
[2021-10-07] MEDS ORDERED: LIDOCAINE 2%HCL (LOCAL ANESTH.) INJ 20ML MDV ONE (10:10)
[2021-10-07] MEDS ORDERED: fentaNYL CITRATE 100 MCG/2 ML VL ONE (10:35)
[2021-10-07] MEDS ORDERED: MIDAZOLAM HCL 2MG/2ML 2ml VIAL (1mg/ml) ONE (10:35)
[2021-10-07] MEDS: cefTRIAXone 1GM/50ML D5W 50 ML IV SCH (11:47)
[2021-10-07] MEDS: PANTOPRAZOLE 40 MG/10 ML VIAL INJ IV SCH (11:47)
[2021-10-07] MEDS: DexAMETHasone SOD PHOS 10MG/1ML VIAL INJ IV SCH (11:47)
[2021-10-07] MEDS: SERTRALINE HCL 50 MG TAB PO SCH (11:48)
[2021-10-07] MEDS: CHOLECALCIFEROL (VITD3) 2,000 UNIT CAP/TAB PO SCH (11:48)
[2021-10-07] MEDS: ASCORBIC ACID 1,000 MG TAB PO SCH (11:48)
[2021-10-07] MEDS: amLODIPine BESYLATE 5 MG TAB PO SCH (11:48)
[2021-10-07] MEDS: ZINC SULFATE 220mg CAP or TAB PO SCH (11:48)
[2021-10-07 13:00] VITALS: BP 140/65
[2021-10-07] MEDS ORDERED: POTASSIUM CHL 20 Meq TABLET PO ONE (13:15)
[2021-10-07 18:33] VITALS: BP 117/60
[2021-10-07] MEDS: ACETAMINOPHEN 500 MG TAB PO PRN (18:53)
[2021-10-07 20:00] VITALS: BP 116/70
[2021-10-07 22:00] VITALS: BP 116/70
[2021-10-08 05:00] VITALS: BP 142/84
[2021-10-08] MEDS: BUDESONIDE (INHALATION) 180 MCG IH IN SCH ×2 (06:04→22:10)
[2021-10-08 09:00] VITALS: BP 146/80
[2021-10-08] MEDS: cefTRIAXone 1GM/50ML D5W 50 ML IV SCH (10:34)
[2021-10-08] MEDS: ENOXAPARIN SOD 80 MG/0.8ML SYRINGE SC SCH (10:34)
[2021-10-08] MEDS: SERTRALINE HCL 50 MG TAB PO SCH (10:35)
[2021-10-08] MEDS: PANTOPRAZOLE 40 MG TAB PO SCH (10:36)
[2021-10-08] MEDS: amLODIPine BESYLATE 5 MG TAB PO SCH (10:36)
[2021-10-08 13:00] VITALS: BP 150/76
[2021-10-08 17:00] VITALS: BP 139/60
[2021-10-08] MEDS: DOXYCYCLINE 100 MG TAB/CAP PO SCH (20:57)
[2021-10-08] MEDS: APIXABAN 5 MG TAB PO SCH (20:57)
[2021-10-08 22:00] VITALS: BP 139/72
[2021-10-09 05:00] VITALS: BP 140/77
[2021-10-09] MEDS: ACETAMINOPHEN 500 MG TAB PO PRN (05:26)
[2021-10-09] MEDS: BUDESONIDE (INHALATION) 180 MCG IH IN SCH (07:49)
[2021-10-09] MEDS ORDERED: METO-6 PO (10:05)
[2021-10-09] MEDS ORDERED: APIX5TAB PO (10:05)
[2021-10-09] MEDS ORDERED: DOXY-286 PO (10:05)
[2021-10-09] MEDS ORDERED: PANT40TA2 PO (10:05)
[2021-10-09 10:12] VITALS: BP 139/72
[2021-10-09] MEDS: DOXYCYCLINE 100 MG TAB/CAP PO SCH (11:34)
[2021-10-09] MEDS: PANTOPRAZOLE 40 MG TAB PO SCH (11:34)
[2021-10-09] MEDS: amLODIPine BESYLATE 5 MG TAB PO SCH (11:34)
[2021-10-09] MEDS: APIXABAN 5 MG TAB PO SCH (11:35)
[2021-10-09] MEDS: SERTRALINE HCL 50 MG TAB PO SCH (11:36)
[2021-10-09 13:00] VITALS: BP 136/70
[2021-10-09 15:00] VITALS: BP 136/70
[2021-10-09 16:55] VITALS: BP 138/76
== END 2021-10-09 17:09 | disposition home health service (06) | DRG 871 ==
LOC: ER 22:24 → EDBD 22:24 → TELE 09-28 06:47 → TELE-EAST 09-28 09:54
PROVIDERS: ADMIT Nurse Practitioner; ATTEND Internal Medicine
PROC: XW033E5 Introduction of Remdesivir Anti-infective into Peripheral Vein, Percutaneous Approach, New Technology Group 5 (ICD-10-PCS; 2021-09-29)
PROC: 30233K1 Transfusion of Nonautologous Frozen Plasma into Peripheral Vein, Percutaneous Approach (ICD-10-PCS; 2021-09-29)
PROC: 30233N1 Transfusion of Nonautologous Red Blood Cells into Peripheral Vein, Percutaneous Approach (ICD-10-PCS; 2021-09-30)
PROC: 0DJ08ZZ Inspection of Upper Intestinal Tract, Via Natural or Artificial Opening Endoscopic (ICD-10-PCS; 2021-10-01)
PROC: 0F9430Z Drainage of Gallbladder with Drainage Device, Percutaneous Approach (ICD-10-PCS; principal; 2021-10-07)
DX: A41.9 Sepsis, unspecified organism (principal); U07.1 COVID-19; J12.82 Pneumonia due to coronavirus disease 2019; J96.01 Acute respiratory failure with hypoxia; N17.0 Acute kidney failure with tubular necrosis; E87.0 Hyperosmolality and hypernatremia; J98.11 Atelectasis; E87.1 Hypo-osmolality and hyponatremia; L02.211 Cutaneous abscess of abdominal wall; D62 Acute posthemorrhagic anemia; E88.09 Other disorders of plasma-protein metabolism, not elsewhere classified; D47.3 Essential (hemorrhagic) thrombocythemia; K29.80 Duodenitis without bleeding; K81.1 Chronic cholecystitis; R79.1 Abnormal coagulation profile; D64.9 Anemia, unspecified; E78.5 Hyperlipidemia, unspecified; F17.210 Nicotine dependence, cigarettes, uncomplicated; I10 Essential (primary) hypertension; F32.A Depression, unspecified; F41.9 Anxiety disorder, unspecified; R74.01 Elevation of levels of liver transaminase levels; E87.6 Hypokalemia; T45.515A Adverse effect of anticoagulants, initial encounter; R79.89 Other specified abnormal findings of blood chemistry; Z88.6 Allergy status to analgesic agent; Z82.49 Family history of ischemic heart disease and other diseases of the circulatory system; Z86.718 Personal history of other venous thrombosis and embolism; Z90.710 Acquired absence of both cervix and uterus; Z88.1 Allergy status to other antibiotic agents; Z88.0 Allergy status to penicillin; Z88.8 Allergy status to other drugs, medicaments and biological substances; Z86.73 Personal history of transient ischemic attack (TIA), and cerebral infarction without residual deficits; Z23 Encounter for immunization
CPT/HCPCS: 10022; 36415; 71045; 74150; 74177; 76604; 76700; 76942; 77012; 80048; 80053; 81001; 82270; 82570; 82728; 83605; 83615; 83735; 84156; 84300; 84443; 84484; 85014; 85018; 85025; 85379; 85610; 85730; 86141; 86850; 86900; 86901; 86920; 87040; 87081; 87205; 87426; 89051; 93005; 93970; 94640; 96361; 96374; 97110; 97116; 97163; 97530; C1729; C9113; G0378; J0696; J1100; J2250; J2704; J3430

== ENCOUNTER 2021-10-23 13:10 | Inpatient (IN) | payer OTHER ==
[~2021-10-23] VITALS: Ht 157.5 cm; Wt 58.1 kg
[~2021-10-23 13:10] MED LIST changes: +APIX5TAB PO; -ASCO100076 PO; -CHOL20007 PO; -CYA100I PO; +DOXY-286 PO; +METO-6 PO; +PANT40TA2 PO
[2021-10-23] MEDS ORDERED: SODIUM CHLORIDE 0.9% 1,000 ML IV ONE (18:30)
[2021-10-23 21:44] LABS: Basophils # (auto) 0 10 ^3/uL (0-0.2); Basophils % (auto) 0.2 % (0.0-2.0); Eosinophils # (auto) 0 10 ^3/uL (0-0.8); Eosinophils % (auto) 0.1 % (0.0-7.0); Hematocrit 30.8 % (36.0-46.0); Lymphocytes # (auto) 1.3 10 ^3/uL (0.4-5.4); Lymphocytes % (auto) 13.5 % (10.0-50.0); Mean Corpuscular Hemoglobin 27.5 pg (28.0-32.0); Mean Corpuscular Hgb Conc. 32.5 g/dL (32.0-36.0); Mean Corpuscular Volume 84.8 fL (80.0-100.0); Monocytes # (auto) 0.5 10 ^3/uL (0-1.3); Neutrophils % (auto) 81.2 % (37.0-80.0); Nucleated Red Blood Cells % 0.2 %; Red Blood Cells 3.63 10^6/uL (4.0-5.20); Red Cell Distribution Width 16.4 % (11.8-14.3); White Blood Cell 9.9 10^3/uL (4.4-10.8)
[2021-10-23 22:00] LABS: INR 1.27 (0.9-1.15); Partial Thromboplastin Time 30.3 sec (23.6-33.0)
[2021-10-23 22:03] LABS: Albumin 1.8 g/dL (3.4-5.0); Calcium 8.2 mg/dL (8.5-10.1); Magnesium 1.6 mg/dL (1.6-2.6); Potassium 3.6 mmol/L (3.5-5.1)
[2021-10-23 22:04] LABS: BUN/Creatinine Ratio 20.4
[2021-10-23 22:07] LABS: Bilirubin, Total 0.5 mg/dL (0.2-1.0); Total Protein 5.6 g/dL (6.4-8.2)
[2021-10-23] MEDS ORDERED: IOHEXOL 300 MG/ML 100ML BOTTLE IJ ONE (22:40)
[2021-10-24] MEDS ORDERED: ACETAMINOPHEN 325 MG TAB PO PRN (01:00)
[2021-10-24] MEDS ORDERED: ONDANSETRON HCL 4 MG/2 ML VIAL IV PRN (01:00)
[2021-10-24] MEDS ORDERED: HYDROcodone-ACET 5/325MG TAB PO PRN (01:00)
[2021-10-24 05:00] VITALS: BP 150/68
[2021-10-24 09:16] VITALS: BP 143/65
[2021-10-24] MEDS: PANTOPRAZOLE 40 MG TAB PO SCH (10:48)
[2021-10-24] MEDS: METOPROLOL SUCCINATE XL 50 MG TAB PO SCH (10:48)
[2021-10-24] MEDS: APIXABAN 5 MG TAB PO SCH (10:48)
[2021-10-24] MEDS ORDERED: LACTULOSE 20Gm/30ML SOLN PO ONE (11:30)
[2021-10-24] MEDS ORDERED: MAGNESIUM CITRATE SOLUTION 300 ML BTL PO ONE (12:30)
[2021-10-24 12:54] VITALS: BP 151/74
[2021-10-24 17:13] VITALS: BP 155/85
[2021-10-24] MEDS ORDERED: LACTULOSE 20Gm/30ML SOLN PO PRN (18:00)
[2021-10-24 20:24] VITALS: BP 145/72
[2021-10-24] MEDS ORDERED: SENNA 8.6 MG TAB PO SCH (22:00)
[2021-10-25] MEDS: APIXABAN 5 MG TAB PO SCH ×2 (00:33→10:23)
[2021-10-25 09:00] VITALS: BP 157/86
[2021-10-25] MEDS ORDERED: SENN-83 PO (09:44)
[2021-10-25] MEDS: PANTOPRAZOLE 40 MG TAB PO SCH (10:23)
[2021-10-25] MEDS: METOPROLOL SUCCINATE XL 50 MG TAB PO SCH (10:26)
[2021-10-25 11:18] VITALS: BP 157/83
[2021-10-27 08:32] VITALS: BP 126/93
== END 2021-10-25 20:50 | disposition home health service (06) | DRG 919 ==
LOC: ER 13:10 → OVERFLOW 10-24 00:59 → WEST WING 10-24 01:00
PROVIDERS: ADMIT Nurse Practitioner; ATTEND Hospitalist
DX: T85.698A Other mechanical complication of other specified internal prosthetic devices, implants and grafts, initial encounter (principal); E43 Unspecified severe protein-calorie malnutrition; K65.1 Peritoneal abscess; L02.211 Cutaneous abscess of abdominal wall; I82.411 Acute embolism and thrombosis of right femoral vein; F32.A Depression, unspecified; K59.00 Constipation, unspecified; E78.5 Hyperlipidemia, unspecified; F41.9 Anxiety disorder, unspecified; Z20.822 Contact with and (suspected) exposure to COVID-19; F17.210 Nicotine dependence, cigarettes, uncomplicated; Y83.8 Other surgical procedures as the cause of abnormal reaction of the patient, or of later complication, without mention of misadventure at the time of the procedure; X58.XXXA Exposure to other specified factors, initial encounter; Z88.6 Allergy status to analgesic agent; Z88.1 Allergy status to other antibiotic agents; Z88.8 Allergy status to other drugs, medicaments and biological substances; Z88.0 Allergy status to penicillin; Z82.49 Family history of ischemic heart disease and other diseases of the circulatory system; Z86.73 Personal history of transient ischemic attack (TIA), and cerebral infarction without residual deficits; Z90.710 Acquired absence of both cervix and uterus; Y92.89 Other specified places as the place of occurrence of the external cause; Z68.23 Body mass index [BMI] 23.0-23.9, adult; Y93.89 Activity, other specified; Y99.8 Other external cause status
CPT/HCPCS: 36415; 73700; 80053; 83735; 85025; 85610; 85730; 87426; 93970; 96360; G0378